=== PATIENT | male | born 1980 | race American Indian/Alaskan Native ===

== ENCOUNTER 2016-09-17 21:23 | Emergency (ER) | payer MEDICARE ==
[2016-09-17] MEDS ORDERED: CATAPRES PO ONE (21:54)
[2016-09-17 22:03] LABS: Basophils % (Auto) 0.7 % (0.0-1.8); Eosinophils % (Auto) 0.7 % (0.0-4.3); Hemoglobin 17.4 gm/dl (11.8-15.2); Mean Corpuscular HGB Conc 33 % (32-34); Mean Corpuscular Hemoglobin 30 pg (28-32); Mean Corpuscular Volume 91 fl (84-94); Platelet Count 327 K/mm3 (140-440); Red Blood Count 5.75 M/mm3 (3.65-5.03); Red Cell Distribution Width 14.6 % (13.2-15.2); White Blood Count 13.7 K/mm3 (4.5-11.0)
[2016-09-17 22:24] LABS: Blood Urea Nitrogen 10 mg/dL (9-20); Calcium 9.3 mg/dL (8.4-10.2); Carbon Dioxide 30 mmol/L (22-30); Chloride 97.2 mmol/L (98-107); Glucose 100 mg/dL (75-100); Potassium 3.7 mmol/L (3.6-5.0); Sodium 139 mmol/L (137-145)
[2016-09-17 22:30] LABS: Anion Gap 16 mmol/L
--- NOTE | 2016-09-18 09:45 | XRay Report ---
Single view chest: History: Chest pain. Findings: Cardiomegaly. Trachea is midline. No consolidation, pneumothorax or pleural effusion. Impression: No acute cardiopulmonary findings.
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
[2016-09-18 12:22] VITALS: BP 139/84
== END 2016-09-18 12:22 | disposition home or self-care (01) ==
LOC: ED 21:23
DX: I10 Essential (primary) hypertension (principal); R07.9 Chest pain, unspecified; I50.9 Heart failure, unspecified; G47.30 Sleep apnea, unspecified
CPT/HCPCS: 36415; 71010; 80048; 84484; 85025; 93005; 93010

== ENCOUNTER 2019-06-08 19:20 | Emergency (ER) | payer MEDICARE ==
--- NOTE | 2019-06-08 20:01 | Event Note ---
ED Screening Note Date of service: 06/08/19 Time: 19:59 ED Screening Note: 39 y/o male comes in for left finger tingling times 1 day. Patient noted to have a BP 203/128 has not taken his blood pressure in 1 week. This initial assessment/diagnostic orders/clinical plan/treatment(s) is/are subj ect to change based on patients health status, clinical progression and re- assessment by fellow clinical providers in the ED. Further treatment and workup at subsequent clinical providers discretion. Patient/guardian urged not to elope from the ED as their condition may be serious if not clinically assessed and managed. Initial orders include:
[2019-06-08] MEDS ORDERED: ASPIRIN PO ONE (20:34)
[2019-06-08] MEDS ORDERED: NORMODYNE IV ONE (20:34)
[2019-06-08 20:53] LABS: Basophils # (Auto) 0.1 K/mm3 (0.0-0.1); Basophils % (Auto) 0.9 % (0.0-1.8); Eosinophils # (Auto) 0.1 K/mm3 (0.0-0.4); Eosinophils % (Auto) 1.7 % (0.0-4.3); Hemoglobin 16.3 gm/dl (11.8-15.2); Lymphocytes # (Auto) 2.6 K/mm3 (1.2-5.4); Lymphocytes % (Auto) 32.8 % (13.4-35.0); Mean Corpuscular HGB Conc 33 % (32-34); Mean Corpuscular Volume 93 fl (84-94); Monocytes # (Auto) 0.7 K/mm3 (0.0-0.8); Platelet Count 263 K/mm3 (140-440); Red Blood Count 5.29 M/mm3 (3.65-5.03); Red Cell Distribution Width 14.5 % (13.2-15.2)
--- NOTE | 2019-06-08 21:08 | XRay Report ---
CHEST 2 VIEWS INDICATION / CLINICAL INFORMATION: MAIN: chest pain TODAY; TINGLING LEFT HAND; HX OF HIGH BLOOD PRESSURE. COMPARISON: 09/17/16 FINDINGS: SUPPORT DEVICES: None. HEART / MEDIASTINUM: Heart is upper normal size and stable. LUNGS / PLEURA: No significant pulmonary or pleural abnormality. No pneumothorax. ADDITIONAL FINDINGS: No significant additional findings. IMPRESSION: 1. No acute findings. No significant change. Signer Name: Bill Ramon MD Signed: 06/08/2019 9:04 PM Workstation Name: [id number]
[2019-06-08 21:23] LABS: Alanine Aminotransferase 22 units/L (7-56); Albumin 3.8 g/dL (3.9-5); BUN/Creatinine Ratio 12; Blood Urea Nitrogen 11 mg/dL (9-20); Hemolysis Index 28
[2019-06-08] MEDS ORDERED: APRESOLINE IV ONE (22:40)
[2019-06-09] MEDS ORDERED: TYLENOL PO ONE (00:17)
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
[2019-06-09] MEDS ORDERED: CATAPRES PO ONE (01:13)
--- NOTE | 2019-06-09 01:54 | Cat Scan Report ---
CT head/brain wo con INDICATION / CLINICAL INFORMATION: headache, elevated BP. TECHNIQUE: All CT scans at this location are performed using CT dose reduction for ALARA by means of automated e xposure control. COMPARISON: 11/16/2015 FINDINGS: No acute intracranial hemorrhage. No abnormal extra-axial fluid collection or mass effect. The ventricular system and basilar cisterns are normal. Visualized orbits and paranasal sinuses are n ormal. No skeletal abnormality. IMPRESSION: 1. Negative nonenhanced head CT. Signer Name: Alex Cunningham MD Signed: 06/09/2019 1:49 AM Workstation Name: [id number]
[2019-06-09 02:33] VITALS: BP 159/117
== END 2019-06-09 02:41 | disposition home or self-care (01) ==
LOC: ED 19:20
DX: S66.912A Strain of unspecified muscle, fascia and tendon at wrist and hand level, left hand, initial encounter (principal); M54.12 Radiculopathy, cervical region; G44.209 Tension-type headache, unspecified, not intractable; I11.0 Hypertensive heart disease with heart failure; I50.9 Heart failure, unspecified; Z90.89 Acquired absence of other organs; Z98.890 Other specified postprocedural states; Z79.899 Other long term (current) drug therapy; X58.XXXA Exposure to other specified factors, initial encounter; Y93.89 Activity, other specified; Y92.89 Other specified places as the place of occurrence of the external cause; Y99.8 Other external cause status
CPT/HCPCS: 36415; 70450; 71046; 80053; 83880; 84484; 85025; 93005; 93010; 96374; 96375; 99284; J0360

== ENCOUNTER 2019-06-14 17:57 | Emergency (ER) | payer MEDICARE ==
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
--- NOTE | 2019-06-14 19:39 | XRay Report ---
CHEST PA AND LATERAL VIEWS INDICATION: Chest Pain. COMPARISON: 09/17/2016 FINDINGS: Support devices: None Heart: Stable. Lungs/Pleura: No acute pulmonary or pleural findings. IMPRESSION: 1. No significant change. Signer Name: Kalyan Jean Baptiste MD Signed: 06/14/2019 7:34 PM Workstation Name: [id number]
[2019-06-14 19:50] LABS: Basophils # (Auto) 0.1 K/mm3 (0.0-0.1); Basophils % (Auto) 0.9 % (0.0-1.8); Eosinophils # (Auto) 0.1 K/mm3 (0.0-0.4); Eosinophils % (Auto) 1.2 % (0.0-4.3); Lymphocytes # (Auto) 2.6 K/mm3 (1.2-5.4); Lymphocytes % (Auto) 28.8 % (13.4-35.0); Mean Corpuscular HGB Conc 33 % (32-34); Mean Corpuscular Volume 94 fl (84-94); Monocytes % (Auto) 11.7 % (0.0-7.3); Platelet Count 264 K/mm3 (140-440); Red Blood Count 5.14 M/mm3 (3.65-5.03); Red Cell Distribution Width 14.5 % (13.2-15.2)
[2019-06-14 20:08] LABS: Alanine Aminotransferase 31 units/L (7-56); Albumin 3.8 g/dL (3.9-5); BUN/Creatinine Ratio 16; Blood Urea Nitrogen 13 mg/dL (9-20); Hemolysis Index 12
[2019-06-14 20:48] VITALS: BP 153/98
== END 2019-06-14 20:57 | disposition home or self-care (01) ==
LOC: ED 17:57
DX: R20.2 Paresthesia of skin (principal); M54.12 Radiculopathy, cervical region; I11.0 Hypertensive heart disease with heart failure; I50.9 Heart failure, unspecified; Z90.89 Acquired absence of other organs; Z98.890 Other specified postprocedural states; Z79.899 Other long term (current) drug therapy
CPT/HCPCS: 36415; 71046; 80053; 82550; 84484; 85025; 93005; 93010

== ENCOUNTER 2019-10-29 20:01 | Emergency (ER) | payer MEDICARE ==
--- NOTE | 2019-10-29 20:28 | Event Note ---
ED Screening Note ED Screening Note: substernal CP that began today left arm tingling no n/v/d no leg swelling +SOB PMHx HTN, sleep apnea, COPD, CHF no allergies to meds non smoker This initial assessment/diagnostic orders/clinical plan/treatment(s) is/are subject to change based on patients health status, clinical progression and re-assessment by fellow clinical providers in the ED. Further treatment and workup at subsequent clinical providers discretion. Patient/guardian urged not to elope from the ED as their condition may be serious if not clinically assessed and managed. Initial orders include: CP protocol
[2019-10-29 21:40] LABS: Basophils # (Auto) 0.1 K/mm3 (0.0-0.1); Eosinophils # (Auto) 0.1 K/mm3 (0.0-0.4); Eosinophils % (Auto) 0.8 % (0.0-4.3); Hemoglobin 16.7 gm/dl (11.8-15.2); Lymphocytes # (Auto) 3.1 K/mm3 (1.2-5.4); Lymphocytes % (Auto) 27.6 % (13.4-35.0); Mean Corpuscular HGB Conc 33 % (32-34); Mean Corpuscular Volume 92 fl (84-94); Monocytes % (Auto) 9.1 % (0.0-7.3); Platelet Count 358 K/mm3 (140-440); Red Blood Count 5.44 M/mm3 (3.65-5.03); Red Cell Distribution Width 14.3 % (13.2-15.2)
[2019-10-29 21:54] LABS: INR 1.08 (0.87-1.13); Partial Thromboplastin Time 30.3 Sec. (24.2-36.6)
[2019-10-29 21:57] LABS: Alanine Aminotransferase 20 units/L (7-56); Albumin 4.2 g/dL (3.9-5); BUN/Creatinine Ratio 20; Blood Urea Nitrogen 24 mg/dL (9-20); Hemolysis Index 26
--- NOTE | 2019-10-29 22:05 | XRay Report ---
CHEST PA AND LATERAL VIEWS INDICATION: CP and SOB. COMPARISON: 06/14/2019. FINDINGS: Support devices: None. Heart: Within normal limits. Lungs/Pleura: No acute pulmonary or pleural findings. IMPRESSION: 1. No acute findings. Signer Name: Addison Soriano MD Signed: 10/29/2019 10:00 PM Workstation Name: [id number]
[2019-10-29] MEDS ORDERED: HYDROcodone/ACETAMINOPHEN 5-325 MG TAB PO ONE (22:32)
[2019-10-29] MEDS ORDERED: KETOROLAC 60 MG/2 ML INJ IM ONE (22:32)
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
[2019-10-30 00:13] VITALS: BP 116/73
== END 2019-10-30 00:15 | disposition home or self-care (01) ==
LOC: ED 20:01
DX: R07.89 Other chest pain (principal); I11.0 Hypertensive heart disease with heart failure; I50.9 Heart failure, unspecified; Z90.49 Acquired absence of other specified parts of digestive tract; Z98.890 Other specified postprocedural states; Z79.899 Other long term (current) drug therapy
CPT/HCPCS: 36415; 71046; 80053; 83880; 84484; 85025; 85610; 85730; 93005; 93010; 96372; 99284; J1885

== ENCOUNTER 2020-12-30 23:23 | Emergency (ER) | payer MEDICARE ==
[2020-12-31 01:20] VITALS: BP 151/88
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
[2020-12-31] MEDS ORDERED: traMADol 50 MG TAB PO ONE (02:08)
== END 2020-12-31 02:13 | disposition home or self-care (01) ==
LOC: ED 23:23
DX: K02.9 Dental caries, unspecified (principal); K04.7 Periapical abscess without sinus; I11.0 Hypertensive heart disease with heart failure; I50.9 Heart failure, unspecified; Z90.49 Acquired absence of other specified parts of digestive tract; Z98.890 Other specified postprocedural states; Z79.899 Other long term (current) drug therapy
CPT/HCPCS: 99282

== ENCOUNTER 2021-03-14 14:35 | Emergency (ER) | payer MEDICARE ==
[2021-03-14 14:49] VITALS: BP 117/84
--- NOTE | 2021-03-14 14:54 | Emergency Department Report ---
Chief Complaint: Dental/Oral Stated Complaint: TOOTH ACHE - HPI History of Present Illness: Chief complaint: Toothache HPI: This is a 41-year-old male who presents with left lower tooth pain. Last year he had a tooth fracture. Tooth is aching for the past day in spite ibuprofen [id number]. Denies fever. Denies difficulty with swallowing. Physical exam: Stable vital signs, no facial neck swelling: On oropharynx exam tooth #17 decayed fractured but no gum swelling Patient referred to dental clinic. Instructed to continue ibuprofen. Medical screening exam performed completed - Exam Vital Signs: Vital Signs 03/14/21 14:49 Temperature 98.4 F Pulse Rate 93 H Respiratory 16 Rate Blood Pressure 117/84 [Left] O2 Sat by Pulse 95 Oximetry MSE screening note: Focused history and physical exam performed. Due to findings the following was ordered: ED Disposition for MSE Clinical Impression: Dental caries, Toothache Disposition: DC-01 TO HOME OR SELFCARE Is pt being admited?: No Does the pt Need Aspirin: No Condition: Stable Referrals: [facility] [Outside] - 3-5 Days [facility] [Outside] - 3-5 Days
== END 2021-03-14 15:25 | disposition home or self-care (01) ==
LOC: ED 14:35
DX: K02.9 Dental caries, unspecified (principal); K08.89 Other specified disorders of teeth and supporting structures
CPT/HCPCS: 99281

== ENCOUNTER 2022-03-05 02:17 | Emergency (ER) | payer MEDICARE ==
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
--- NOTE | 2022-03-05 09:39 | XRay Report ---
CHEST 2 VIEWS INDICATION / CLINICAL INFORMATION: Chest Pain. COMPARISON: 10/29/2019 FINDINGS: SUPPORT DEVICES: None. HEART / MEDIASTINUM: There is mild cardiomegaly. LUNGS / PLEURA: No significant pulmonary or pleural abnormality. No pneumothorax. ADDITIONAL FINDINGS: No significant additional findings. IMPRESSION: 1. Mild cardiomegaly without acute pulmonary abnormality Signer Name: Rashad Cage MD Signed: 03/05/2022 9:34 AM Workstation Name: [employer]
[2022-03-05 10:02] LABS: Basophils # (Auto) 0.1 K/mm3 (0.0-0.1); Basophils % (Auto) 0.7 % (0.0-1.8); Eosinophils # (Auto) 0.1 K/mm3 (0.0-0.4); Eosinophils % (Auto) 0.5 % (0.0-4.3); Hematocrit 53.2 % (35.5-45.6); Hemoglobin 17.7 gm/dl (11.8-15.2); Lymphocytes # (Auto) 2.7 K/mm3 (1.2-5.4); Lymphocytes % (Auto) 24.3 % (13.4-35.0); Mean Corpuscular HGB Conc 33 % (32-34); Mean Corpuscular Volume 93 fl (84-94); Monocytes # (Auto) 1.4 K/mm3 (0.0-0.8); Monocytes % (Auto) 12.8 % (0.0-7.3); Platelet Count 299 K/mm3 (140-440); Red Blood Count 5.71 M/mm3 (3.65-5.03); Red Cell Distribution Width 14.9 % (13.2-15.2)
[2022-03-05 10:30] LABS: Alanine Aminotransferase 34 units/L (7-56); Albumin 4.2 g/dL (3.9-5); BUN/Creatinine Ratio 15; Blood Urea Nitrogen 21 mg/dL (9-20); Calcium 9.8 mg/dL (8.4-10.2); Hemolysis Index 7
[2022-03-05] MEDS ORDERED: cloNIDine 0.1 MG TAB PO ONE (10:42)
[2022-03-05 14:43] VITALS: BP 96/52
[2022-03-05 15:23] LABS: Bacteria,Urine 1+ /HPF (Negative); Mucus,Urine FEW /HPF
[2022-03-05 16:30] LABS: Bilirubin,Urine Negative (Negative); Blood,Urine Negative (Negative); Color,Urine Yellow (Yellow); Protein,Urine <30 mg dL mg/dL (Negative)
[2022-03-05 16:31] LABS: Urobilinogen,Urine < 2.0 mg/dL (<2.0)
--- NOTE | 2022-03-05 17:54 | Electrocardiograph Report ---
[facility] Test Date: 2022-03-05 Test Time: 02:38:09 Pat Name: LUIS ENRIQUE HOWARD Department: Room: Gender: M Steam Condition[employer] Operator: NURSE : 1980 Requested By: KIARA DREW Order Number: [id number] Reading MD: Kasie Estevez Measurements Intervals [place] Rate: 88 P: 75 SD: 176 QRS: 12 QRSD: 98 T: 16 QT: 351 QTc: 426 Interpretive Statements Sinus rhythm Left atrial enlargement Anteroseptal infarct, old No previous ECG available for comparison Electronically Signed On 03-05-2022 17:54:12 EDT by Kasie Estevez
== END 2022-03-05 14:00 | disposition home or self-care (01) ==
LOC: ED 02:17
DX: I42.9 Cardiomyopathy, unspecified (principal); R07.9 Chest pain, unspecified; I16.0 Hypertensive urgency; F17.200 Nicotine dependence, unspecified, uncomplicated; F10.20 Alcohol dependence, uncomplicated
CPT/HCPCS: 36415; 71046; 80053; 81001; 83880; 84484; 85025; 93005; 99284